=== PATIENT | female | born 1990 | race Caucasian/White ===

== ENCOUNTER 2018-01-12 23:33 | Outpatient (CLI) | END 2018-01-13 02:25 | disposition home or self-care (01) ==

== ENCOUNTER 2018-01-14 11:45 | Outpatient (CLI) | END 2018-01-14 13:32 | disposition home or self-care (01) ==

== ENCOUNTER 2018-01-20 01:25 | Inpatient (IN) | END 2018-01-20 10:06 | disposition home or self-care (01) | DRG 833 ==

== ENCOUNTER 2018-01-21 00:52 | Outpatient (CLI) | END 2018-01-21 06:00 | disposition home or self-care (01) ==

== ENCOUNTER 2018-01-29 12:01 | Inpatient (IN) | END 2018-02-01 17:50 | disposition home or self-care (01) | DRG 788 ==